=== PATIENT | male | born 1945 | race Caucasian/White ===

== ENCOUNTER 2020-12-18 21:58 | Emergency (ER) | payer OTHER, MEDICARE ==
[2020-12-18 22:34] LABS: BASOPHIL 0.5 % (0-2); EOSINOPHIL 5.7 % (0-7); HCT 43.1 % (42.0-52.0); HGB 15.1 g/dl (13.2-18.0); LYMPHOCYTE 28.6 % (15-48); MCH 31.1 pg (25.0-31.0); MCV 88.9 fL (78.0-100.0); MONOCYTE 11.9 % (0-12); MPV 10.5 fL (6.0-9.5); NEUTROPHIL 52.9 % (41-80); NRBC 0; PLT 159 K/uL (150-400); RBC 4.85 M/uL (4.70-6.00); RDW 12.3 % (11.5-14.0); WBC 7.7 K/uL (4.0-10.5)
[2020-12-18 22:39] LABS: INR 1.07 (0.9-1.2); PROTHROMBIN TIME 13.3 SECONDS (11.8-13.4); PTT 27.3 SECONDS (24.4-34.7)
[2020-12-18 22:49] LABS: ALBUMIN 3.8 g/dL (3.4-5.0); BILIRUBIN - TOTAL 0.5 mg/dL (0.2-1.0); CREATININE 1.05 mg/dL (0.67-1.17); GLOBULIN (CALCULATION) 3.3 g/dL; POTASSIUM 3.7 mmol/L (3.5-5.1); TOTAL PROTEIN 7.1 g/dL (6.4-8.2)
[2020-12-18 22:55] LABS: PRO-BNP 67 pg/mL (<125)
[2020-12-19] MEDS ORDERED: PRILOSEC20 MG PO (00:51)
== END 2020-12-19 01:30 | disposition home or self-care (01) ==
LOC: FER 21:58
PROVIDERS: Emergency Medicine Emergency Medical Services
DX: R10.13 Epigastric pain (principal); I10 Essential (primary) hypertension; E11.9 Type 2 diabetes mellitus without complications; Z88.0 Allergy status to penicillin; Z88.2 Allergy status to sulfonamides; Z79.84 Long term (current) use of oral hypoglycemic drugs; Z79.899 Other long term (current) drug therapy
CPT/HCPCS: 36415; 71045; 80053; 83690; 83880; 84484; 85025; 85610; 85730; 87339; 93005; J7030